=== PATIENT | female | born 1950 | race Caucasian/White ===

== ENCOUNTER 2022-09-24 14:12 | Inpatient (IN) | payer MEDICARE, OTHER ==
[2022-09-24 14:48] LABS: CHLORIDE,CL 113 mEq/L (98-106); ESTIMATED GFR 91 mL/min (>=60); SODIUM,NA 148 mEq/L (136-145)
[2022-09-24] MEDS ORDERED: Ondansetron 4 MG/2 ML SDV IV PRN (15:25)
[2022-09-24] MEDS ORDERED: Acetaminophen 325 MG Tab PO PRN (15:25)
[2022-09-24] MEDS ORDERED: Sodium Chloride 0.9% 10 ML Syringe FLUSH PRN (15:25)
[2022-09-24] MEDS ORDERED: Pantoprazole 40 MG Vial IVPUSH ONE (15:35)
[2022-09-24] MEDS ORDERED: Sodium Chloride 0.9% 1,000 ML IV SCH (15:45)
[2022-09-24 16:03] LABS: PTT,PARTIAL THROMBOPLSTIN TIME 20.4 SEC (20.0-30.0)
[2022-09-24] MEDS ORDERED: Sodium Chloride 0.9% 250 ML IV ONE (16:30)
[2022-09-24] MEDS: Pantoprazole 40 MG in Sodium Chloride 0.9% 100 ML IV SCH (17:08)
[2022-09-24] MEDS ORDERED: Furosemide 20 MG/2 ML VIAL IVPUSH ONE (20:00)
[2022-09-25] MEDS: Pantoprazole 40 MG in Sodium Chloride 0.9% 100 ML IV SCH ×2 (03:54→08:19)
[2022-09-25] MEDS: Cyanocobalamin (Vitamin B12) 100 MCG Tab PO SCH (07:37)
[2022-09-25] MEDS: Cholecalciferol (Vitamin D3) 25 MCG Tab PO SCH (07:37)
[2022-09-25] MEDS ORDERED: Ferrous Sulfate Solution 220 MG/5 ML ML 473 ML Bottle PO SCH (08:00)
[2022-09-25] MEDS ORDERED: Ascorbic Acid 500 MG Tab PO SCH (08:00)
[2022-09-25] MEDS: Multivitamins with Minerals and Iron Liquid ML 240 ML Bottle PO SCH (08:45)
[2022-09-25] MEDS ORDERED: Potassium Chloride 10 MEQ Tab.ER PO ONE (10:10)
[2022-09-25] MEDS: Pantoprazole 40 MG Tab.CR PO SCH (16:39)
[2022-09-26] MEDS: Lactated Ringers 1,000 ML IV SCH (09:40)
[2022-09-26] MEDS ORDERED: Lidocaine 2% 20 ML MDV ONE (11:00)
[2022-09-26] MEDS ORDERED: fentaNYL 50 MCG/ML SDV ONE (11:00)
[2022-09-26] MEDS ORDERED: Propofol 200 MG/20 ML SDV ONE (11:00)
[2022-09-26] MEDS: Pantoprazole 40 MG Tab.CR PO SCH ×2 (13:00→17:32)
[2022-09-26] MEDS: Cyanocobalamin (Vitamin B12) 100 MCG Tab PO SCH (13:03)
[2022-09-26] MEDS: Cholecalciferol (Vitamin D3) 25 MCG Tab PO SCH (13:03)
[2022-09-26] MEDS: Multivitamins with Minerals and Iron Liquid ML 240 ML Bottle PO SCH (13:03)
[2022-09-26] MEDS ORDERED: Polyethylene Glycol 3350 Powder 238 GM Bot PO SCH (18:00)
[2022-09-26] MEDS ORDERED: Bisacodyl 5 MG Tab PO ONE (20:00)
[2022-09-26] MEDS ORDERED: hydrOXYzine HCl 25 MG Tab PO ONE (20:09)
[2022-09-27] MEDS: Lactated Ringers 1,000 ML IV SCH (11:39)
[2022-09-27] MEDS: Multivitamins with Minerals and Iron Liquid ML 240 ML Bottle PO SCH ×2 (14:42→14:52)
[2022-09-27] MEDS: Pantoprazole 40 MG Tab.CR PO SCH ×2 (14:42→16:52)
[2022-09-27] MEDS: Cholecalciferol (Vitamin D3) 25 MCG Tab PO SCH (14:42)
[2022-09-27] MEDS: Cyanocobalamin (Vitamin B12) 100 MCG Tab PO SCH (14:42)
== END 2022-09-27 18:20 | disposition home or self-care (01) | DRG 379 ==
LOC: CC.MS 14:12 → CC.FCMC 14:12 → CC.MS 15:15 → UNDOADMIN 15:15 → CC.MS 15:25
PROVIDERS: ADMIT Nurse Practitioner Family; ATTEND Nurse Practitioner Family
PROC: 30233N1 Transfusion of Nonautologous Red Blood Cells into Peripheral Vein, Percutaneous Approach (ICD-10-PCS; 2022-09-24)
PROC: 0DJ08ZZ Inspection of Upper Intestinal Tract, Via Natural or Artificial Opening Endoscopic (ICD-10-PCS; principal; 2022-09-26)
PROC: 0DBL8ZX Excision of Transverse Colon, Via Natural or Artificial Opening Endoscopic, Diagnostic (ICD-10-PCS; 2022-09-27)
PROC: 0DBK8ZX Excision of Ascending Colon, Via Natural or Artificial Opening Endoscopic, Diagnostic (ICD-10-PCS; 2022-09-27)
PROC: 0DBN8ZX Excision of Sigmoid Colon, Via Natural or Artificial Opening Endoscopic, Diagnostic (ICD-10-PCS; 2022-09-27)
DX: K57.31 Diverticulosis of large intestine without perforation or abscess with bleeding (principal); K52.9 Noninfective gastroenteritis and colitis, unspecified; D64.9 Anemia, unspecified; D12.2 Benign neoplasm of ascending colon; D12.3 Benign neoplasm of transverse colon; D12.5 Benign neoplasm of sigmoid colon; Z79.899 Other long term (current) drug therapy; Z88.0 Allergy status to penicillin; Z88.2 Allergy status to sulfonamides
CPT/HCPCS: 36415; 36430; 80053; 82947; 85025; 85610; 85730; 86140; 86850; 86900; 86901; 86920; 86922; 99223; 99232; 99233; 99238; A9270-GY; C9113; J1940; J2405; J2704; J3010; J3490; J7030; J7050; J7120; P9016